=== PATIENT | male | born 1960 | race Caucasian/White ===

== ENCOUNTER → 2017-10-30 | Outpatient (CLI) | payer OTHER | END | disposition home or self-care (01) | LOC: C.LABSPEC 17:20 | PROVIDERS: ATTEND Urology | DX: N41.0 Acute prostatitis (principal) ==

== ENCOUNTER → 2018-03-25 | Outpatient (CLI) | payer OTHER ==
[2018-03-25 10:35] LABS: ALBUMIN 3.8 gm/dl (3.4-5.0); ALKALINE PHOSPHATASE 52 U/L (45-117); ALT/SGPT 42 U/L (12-78); AST/SGOT 22 U/L (15-37); BLOOD UREA NITROGEN 17 mg/dl (7-18); CALCIUM 9.3 mg/dl (8.5-10.1); CARBON DIOXIDE 29 mmol/L (21-32); CREATININE 0.97 mg/dl (0.60-1.40); GLUCOSE 94 mg/dl (70-99); POTASSIUM 3.5 mmol/L (3.5-5.1); SODIUM 139 mmol/L (136-145); TOTAL PROTEIN 7.6 gm/dl (6.4-8.2)
== END | disposition home or self-care (01) ==
LOC: C.LAB 09:25
PROVIDERS: ATTEND Urology
DX: N40.1 Benign prostatic hyperplasia with lower urinary tract symptoms (principal)

== ENCOUNTER 2020-11-16 14:31 | Inpatient (IN) ==
[2020-11-16] MEDS ORDERED: ONDANSETRON INJ 2 MG/ML 2 ML VIAL IV STA (14:41)
[2020-11-16] MEDS ORDERED: MoRPHine SULFATE 4 MG/ML 1 ML CARP\\VIAL IV STA ×2 (14:41→16:10)
[2020-11-16] MEDS ORDERED: SODIUM CHLORIDE 0.9% 1000ML 1,000 ML IV ONE (14:41)
--- NOTE | 2020-11-16 15:04 | Emergency Department Note ---
Impression & Plan Hydronephrosis due to obstruction of ureter, Renal colic ED Provider Note NAME: TAYLOR MINOR AGE: 60 SEX: M : 1960 ARRIVES VIA: Walk-In INFORMANT: Patient ED PROVIDER(S): Bernardo Juan DO CHIEF COMPLAINT: Left flank pain HPI: Patient is a 60-year-old male who presents to ER for left flank pain which started over a week ago. Symptoms have been getting worse. He was seen in outside facility and then again last night at [facility]. After being discharged patient was doing well. He was discharged around 2 AM and was given Toradol and his oxycodone. He was doing well until about 9 AM when pain started up. He started taking his oxycodone and Toradol and had no significant improvement called urology and was referred in. He has an appointment with Dr. Orr coming up this week. No headache or change in vision. No chest pain or shortness of breath. ROS: See above HPI for pertinent positives & negatives. A total of 10 systems reviewed and were otherwise negative. PAST MEDICAL HISTORY:See Below PAST SURGICAL HISTORY:See Below FAMILY HISTORY:See Below SOCIAL HISTORY:See Below HOME MEDICATIONS:See Below ALLERGIES:See Below VITALS:See Below PHYSICAL EXAMINATION: GENERAL: Sitting up in bed, alert, Moderate distress holding left flank EYE EXAM: normal conjunctiva. OROPHARYNX: no exudate, no erythema, lips, buccal mucosa, and tongue normal and mucous membranes are moist NECK: supple, no nuchal rigidity, no adenopathy, non-tender LUNGS: Clear to auscultation. Normal chest wall mechanics HEART: no murmurs, S1 normal and S2 normal ABDOMEN: abdomen soft, non-tender, normo-active bowel sounds, no masses, no rebound or guarding. UPPER EXTREMITIES: upper extremities are grossly normal. LOWER EXTREMITIES: No pitting edema. NEURO EXAM: Normal sensorium, cranial nerves II-XII grossly intact, normal speech, no gross weakness of arms, no gross weakness of legs. MEDICAL DECISION MAKING: Patient is a 60-year-old male who presents the ER for left flank pain. This is been going on for over a week. Patient was seen in outside facility and again last night here around 2 AM. Patient was discharged home and was doing well. Repeat blood work was obtained and shows no significant leukocytosis or anemia. BMP with LFTs bilirubin and lipase was unremarkable. UA with small amount of blood in his urine consistent with stone. KUB did not visualize Stone. Did not repeat an ultrasound as he just had a CT performed about 12 hours ago here.He was given IV fluids and 2 dose of IV narcotics. He still had persistent pain. He was discussed with urology. Discussed with hospitalist for observation secondary to persistent pain he lives [place] away with this now being his third visit. Triage Nursing notes reviewed. Limited review of prior medical records performed Vital Signs: reviewed and remarkable for no significant abnormalities Differential diagnosis: Differential diagnoses includes but is not limited to gastritis, peptic ulcer disease, GERD, gallbladder disease, pancreatitis, small bowel obstruction, acute coronary syndrome, pericarditis, ischemic bowel, irritable bowel disease, irritable bowel syndrome, appendicitis, diverticulitis, malignancy, hernia, urinary tract infection, torsion, perforation, trauma, infectious. ER treatment provided: See below Diagnostics interpreted by me: ECG: none Cardiac Monitoring: An order was placed for continuous cardiac monitoring. The monitor shows a rate of 82 with sinus rhythm. Laboratory studies: As stated above and show below. Imaging studies: KUB was unremarkable Consultation(s): Discussed with urology who recommended if pain is not controlled observation and n.p.o. after midnight Discussed with Dr. Manning from not any hospitalist for further evaluation Procedures: none Critical Care: None Past Med/Surg History Social History Smoking Status: Never smoker Preferred Language: Faroese Feels Safe at Home: Yes Allergies Allergies Allergy/AdvReac Type Severity Reaction Status Date / Time No Known Allergies Allergy Unverified 11/16/20 15:55 Home Meds Home Medications Medication Instructions Recorded Confirmed ketorolac 10 mg PO UD PRN 11/15/20 11/16/20 metoprolol succinate 25 mg PO HS 11/15/20 11/16/20 ondansetron 4 mg PO UD PRN 11/15/20 11/16/20 tamsulosin 0.4 mg PO DAILY 11/15/20 11/16/20 famotidine [Pepcid] 20 mg PO DAILY PRN 11/16/20 11/16/20 Previous Rx's Medication Instructions Recorded oxycodone 5 mg PO Q4H #15 tab 11/16/20 Results & Data (ED) Vital Signs Vital Signs - 24 hr 11/16/20 14:32 11/16/20 14:58 11/16/20 15:35 Temperature 36.8 C Temperature Source Temporal Artery Scan Pulse Rate 92 H Pulse Rate [Finger] 89 Pulse Rhythm Regular Pulse Strength Normal Respiratory Rate 20 18 Respiratory Effort / Characteristics Non-Labored Spontaneous Respiratory Depth Normal Respiratory Pattern Regular Blood Pressure [Left Arm] 148/99 H Blood Pressure Mean [Left Arm] 115 Blood Pressure Position Sitting Pulse Oximetry 96 97 Oxygen Delivery Method Room Air Room Air Room Air Sepsis Recent Fever Within 48 Hours No Sepsis New/Unexplained Change in Mental Status No Sepsis Action Taken by Nursing No Action Required 11/16/20 16:06 Temperature Temperature Source Pulse Rate Pulse Rate [Finger] 86 Pulse Rhythm Pulse Strength Respiratory Rate 18 Respiratory Effort / Characteristics Non-Labored Respiratory Depth Normal Respiratory Pattern Blood Pressure [Left Arm] 150/99 H Blood Pressure Mean [Left Arm] 116 Blood Pressure Position Pulse Oximetry 97 Oxygen Delivery Method Room Air Sepsis Recent Fever Within 48 Hours Sepsis New/Unexplained Change in Mental Status Sepsis Action Taken by Nursing Laboratory Data Result diagrams: 11/16/20 14:57 11/16/20 14:57 Lab Results 11/16/20 11/16/20 11/16/20 Range/Units 14:57 14:57 14:57 WBC 8.85 (4.8-10.8) K/uL RBC 4.46 L (4.7-6.1) M/uL Hgb 14.0 (14.0-18.0) g/dL Hct 38.8 L (42-52) % MCV 87.0 (80-100) fL MCH 31.4 (25-34) pg MCHC 36.1 H (32-36) g/dL RDW Std Deviation 43.5 (36.4-46.3) fL RDW Coeff of Neymar 13.5 (11.5-14.5) % Plt Count 245 (130-400) K/uL MPV 8.8 (7.4-10.4) fL Immature Gran % (Auto) 0.2 % Neut % (Auto) 63.2 % Lymph % (Auto) 24.4 % Nobles % (Auto) 9.8 % Eos % (Auto) 2.3 % Baso % (Auto) 0.1 % Neut # (Auto) 5.59 (1.4-6.5) K/uL Lymph # (Auto) 2.16 (1.2-3.4) K/uL Nobles # (Auto) 0.87 H (0.11-0.59) K/uL Eos # (Auto) 0.20 (0-0.5) K/uL Baso # (Auto) 0.01 (0-0.2) K/uL Immature Gran # (Auto) 0.02 (0.00-0.02) K/uL Sodium 137 (136-145) mmol/L Potassium 4.0 (3.5-5.1) mmol/L Chloride 104 (98-107) mmol/L Carbon Dioxide 30 (21-32) mmol/L Anion Gap 3.0 (3-11) BUN 15 (7-18) mg/dl Creatinine 1.26 (0.6-1.4) mg/dl Est Cr Clr Drug Dosing 83.7 ml/min Est GFR ( Amer) 72.4 Est GFR (Non-Af Amer) 62.5 BUN/Creatinine Ratio 11.8 (10-20) Glucose 91 (70-99) mg/dl Calcium 8.2 L (8.5-10.1) mg/dl Total Bilirubin 0.6 (0.2-1) mg/dl AST 27 (15-37) U/L ALT 51 (12-78) U/L Alkaline Phosphatase 61 (45-117) U/L Total Protein 7.3 (6.4-8.2) gm/dl Albumin 3.4 (3.4-5.0) gm/dl Globulin 3.9 (2.5-4.0) gm/dl Albumin/Globulin Ratio 0.9 (0.9-2) Lipase 102 (73-393) U/L Urine Color Yellow Urine Appearance Clear (Clear) Urine pH 6.5 (4.5-7.5) Ur Specific [place] 1.019 (1.000-1.030) Urine Protein Negative (Negative) Urine Glucose (UA) Negative (Negative) Urine Ketones Negative (Negative) Urine Blood 3+ H (Negative) Urine Nitrite Negative (Negative) Urine Bilirubin Negative (Negative) Urine Urobilinogen Negative (Negative) Ur Leukocyte Esterase Negative (Negative) Urine WBC (Auto) 1-5 (0-5) /hpf Urine RBC (Auto) >30 H (0-4) /hpf U Hyaline Cast (Auto) 0 (0-5) /lpf U Epithel Cells (Auto) 0-5 (0-5) /lpf Urine Bacteria (Auto) Negative (Negative) COVID-19 Eval Order 11/16/20 Range/Units 16:28 WBC (4.8-10.8) K/uL RBC (4.7-6.1) M/uL Hgb (14.0-18.0) g/dL Hct (42-52) % MCV (80-100) fL MCH (25-34) pg MCHC (32-36) g/dL RDW Std Deviation (36.4-46.3) fL RDW Coeff of Neymar (11.5-14.5) % Plt Count (130-400) K/uL MPV (7.4-10.4) fL Immature Gran % (Auto) % Neut % (Auto) % Lymph % (Auto) % Nobles % (Auto) % Eos % (Auto) % Baso % (Auto) % Neut # (Auto) (1.4-6.5) K/uL Lymph # (Auto) (1.2-3.4) K/uL [place]les # (Auto) (0.11-0.59) K/uL Eos # (Auto) (0-0.5) K/uL Baso # (Auto) (0-0.2) K/uL Immature Gran # (Auto) (0.00-0.02) K/uL Sodium (136-145) mmol/L Potassium (3.5-5.1) mmol/L Chloride (98-107) mmol/L Carbon Dioxide (21-32) mmol/L Anion Gap (3-11) BUN (7-18) mg/dl Creatinine (0.6-1.4) mg/dl Est Cr Clr Drug Dosing ml/min Est GFR ( Amer) Est GFR (Non-Af Amer) BUN/Creatinine Ratio (10-20) Glucose (70-99) mg/dl Calcium (8.5-10.1) mg/dl Total Bilirubin (0.2-1) mg/dl AST (15-37) U/L ALT (12-78) U/L Alkaline Phosphatase (45-117) U/L Total Protein (6.4-8.2) gm/dl Albumin (3.4-5.0) gm/dl Globulin (2.5-4.0) gm/dl Albumin/Globulin Ratio (0.9-2) Lipase (73-393) U/L Urine Color Urine Appearance (Clear) Urine pH (4.5-7.5) Ur Specific [place] (1.000-1.030) Urine Protein (Negative) Urine Glucose (UA) (Negative) Urine Ketones (Negative) Urine Blood (Negative) Urine Nitrite (Negative) Urine Bilirubin (Negative) Urine Urobilinogen (Negative) Ur Leukocyte Esterase (Negative) Urine WBC (Auto) (0-5) /hpf Urine RBC (Auto) (0-4) /hpf U Hyaline Cast (Auto) (0-5) /lpf U Epithel Cells (Auto) (0-5) /lpf Urine Bacteria (Auto) (Negative) COVID-19 Eval Order CovFluRsv at [facility] Administered Medications Discontinued Medications Sodium Chloride (Nss 1000ml) 1,000 mls @ 999 mls/hr IV .[id number] ONE Stop: 11/16/20 15:41 Last Infusion: 11/16/20 16:02 Dose: 0 mls/hr Documented by: [id number] Admin: 11/16/20 14:56 Dose: 999 mls/hr Documented by: [id number] Morphine Sulfate (Morphine Sulfate 4 Mg/Ml 1 Ml Carp\Vial) 4 mg IV NOW STA Stop: 11/16/20 14:42 Last Admin: 11/16/20 14:55 Dose: 4 mg Documented by: [id number] Morphine Sulfate (Morphine Sulfate 4 Mg/Ml 1 Ml Carp\Vial) 4 mg IV NOW STA Stop: 11/16/20 16:11 Last Admin: 11/16/20 16:25 Dose: 4 mg Documented by: [id number] Ondansetron HCl (Ondansetron Inj 2 Mg/Ml 2 Ml Vial) 4 mg IV NOW STA Stop: 11/16/20 14:42 Last Admin: 11/16/20 14:56 Dose: 4 mg Documented by: [id number] Imaging Data Radiologist's Impression: KUB X-Ray 11/16/20 14:42 KUB CLINICAL HISTORY: Left flank pain. FINDINGS: 3 AP supine abdominal radiographs are correlated with abdominal CT performed the same day 11/16/2020. Cystectomy clips are seen in the right upper quadrant. There is a nonobstructed abdominal bowel gas pattern noting moderate colonic fecal retention. The patient's known left ureteral stone is not visualized. No calcifications are seen projecting over either kidney. The right renal shadow is largely obscured by overlying colonic contents. Phleboliths are noted in the pelvis. The bony structures appear intact. IMPRESSION: The patient's known left ureteral stone seen by CT is not visualized by x-ray. Electronically signed by: Torres Allison M.D. 11/16/2020 3:20 PM Discharge Plan Visit Data Chief Complaint: Kidney Stone Stated Complaint: LEFT SIDED KIDNEY STONE ED Provider: Bernardo Juan Discharge Problem: Hydronephrosis due to obstruction of ureter, Renal colic Forms Stand Alone Forms: [facility] [employer] Prescriptions Prescriptions: No Action ketorolac 10 mg tablet 10 mg PO UD PRN (Reason: Pain) RF: 0 tamsulosin 0.4 mg capsule 0.4 mg PO DAILY RF: 0 ondansetron 4 mg tablet,disintegrating 4 mg PO UD PRN (Reason: Nausea) RF: 0 metoprolol succinate 25 mg tablet extended release 24 hr 25 mg PO HS RF: 0 oxycodone 5 mg tablet 5 mg PO Q4H Qty: 15 RF: 0 famotidine [Pepcid] 20 mg Tablet 20 mg PO DAILY PRN (Reason: Heartburn) RF: 0
[2020-11-16 15:10] LABS: Basophils # (auto) 0.01 K/uL (0-0.2); Basophils % (auto) 0.1 %; Eosinophils % (auto) 2.3 %; Hematocrit (blood only) 38.8 % (42-52); Immature Granulocytes # (auto) 0.02 K/uL (0.00-0.02); Immature Granulocytes % (auto) 0.2 %; Lymphocytes # (auto) 2.16 K/uL (1.2-3.4); Lymphocytes % (auto) 24.4 %; Mean Corpuscular Hemoglobin 31.4 pg (25-34); Mean Corpuscular Hgb Conc 36.1 g/dL (32-36); Mean Platelet Volume 8.8 fL (7.4-10.4); Monocytes # (auto) 0.87 K/uL (0.11-0.59); Monocytes % (auto) 9.8 %; Neutrophils # (auto) 5.59 K/uL (1.4-6.5); Neutrophils % (auto) 63.2 %; Platelet Count 245 K/uL (130-400); RDW Coefficient of Variation 13.5 % (11.5-14.5); RDW Standard Deviation 43.5 fL (36.4-46.3); Red Blood Count 4.46 M/uL (4.7-6.1); White Blood Count 8.85 K/uL (4.8-10.8)
[2020-11-16 15:20] LABS: Appearance Urine Clear (Clear); Bacteria Urine Automated Negative (Negative); Bilirubin Urine Negative (Negative); Blood Urine 3+ (Negative); Cast Urine Automated 0 /lpf (0-5); Color Urine Yellow; Epithelial Cell Urine Auto 0-5 /lpf (0-5); Glucose Urine UA Negative (Negative); Ketones Urine Negative (Negative); Leukocyte Esterase Urine Negative (Negative); Nitrite Urine Negative (Negative); Protein Urine Negative (Negative); RBC Urine Automated >30 /hpf (0-4); Specific Gravity Urine 1.019 (1.000-1.030); Urobilinogen Urine Negative (Negative); pH Urine 6.5 (4.5-7.5)
--- NOTE | 2020-11-16 15:21 | XRay Report ---
KUB CLINICAL HISTORY: Left flank pain. FINDINGS: 3 AP supine abdominal radiographs are correlated with abdominal CT performed the same day . Cystectomy clips are seen in the right upper quadrant. There is a nonobstructed abdominal b owel gas pattern noting moderate colonic fecal retention. The patient's known left ureteral stone is not visualized. No calcifications are seen projecting over either kidney. The right renal shadow is l argely obscured by overlying colonic contents. Phleboliths are noted in the pelvis. The bony structur es appear intact. IMPRESSION: The patient's known left ureteral stone seen by CT is not visualized by x-ray. Electronically signed by: Torres Allison M.D. 11/16/2020 3:20 PM
[2020-11-16 15:35] LABS: Albumin Level 3.4 gm/dl (3.4-5.0); BUN Creatinine Ratio 11.8 (10-20); Calcium 8.2 mg/dl (8.5-10.1); Creatinine Clr Calc Pharmacy 83.7 ml/min; Est GFR (African American) 72.4; Est GFR (Non-African American) 62.5
[2020-11-16 15:37] LABS: Albumin Globulin Ratio 0.9 (0.9-2); Bilirubin,Total 0.6 mg/dl (0.2-1); Globulin 3.9 gm/dl (2.5-4.0); Total Protein 7.3 gm/dl (6.4-8.2)
[2020-11-16] MEDS ORDERED: MoRPHine SULFATE 2 MG/ML CARP IV PRN (16:58)
[2020-11-16] MEDS ORDERED: oxyCODONE/ACETAMINOPHEN 5mg/325mg TAB PO PRN (16:58)
[2020-11-16 17:18] LABS: Influenza A virus by PCR Negative (Neg); Influenza B virus by PCR Negative (Neg); RSV by PCR Negative (Neg); SARS CoV2 RNA(COVID-19) InHosp NEGATIVE (Negative)
--- NOTE | 2020-11-16 17:26 | History & Physical Report ---
Date of Service November 16, 2020 Assessment & Plan (1) Ureterolithiasis: - There is a 4 mm obstructing calculus in the mid left ureter - least mild left-sided hydronephrosis. Numerous parapelvic cysts are seen bilaterally. -There is slightly heterogeneous enhancement of the left kidney. Mild left-sided perinephric stranding is noted. - Pain control- Toradol 15mg IV 16 hours scheduled for 24 hours, Percocet 5/325 II q6 prn, Morphine 2 mg IV q2h PRN severe pain - Continue Tamsulosin 0.4mg PO daily - LR at 100 ml per hour - NPO after midnight - Urology consulted Patient is non-septic and urine analysis is negative for infection. (2) HTN (hypertension): States he is originally well controlled, likely elevated now in the setting of acute pain - Continue Metoprolol - Notify team if >180 (3) GERD (gastroesophageal reflux disease): No acute needs - Continue famotidine 20 mg PO Daily (4) Obesity: BMI 36- educate on weight loss and activity - assess other co-morbidities - lipid panel in morning - Hgb A1C in morning - consider adding aspirin after acute setting for primary prevention (5) DVT prophylaxis: Heparin 5000 subq q12 SCD Early ambulation (6) Renal cyst: Chronic - no acute needs, normal renal function History of Present Illness Chief Complaint: renal colic Primary Care Provider: Atul Suero 60 YOM with past medical history of HTN, obesity, nephrolithiasis, renal cysts, and cholecystectomy. Patient comes in to the emergency room today for uncontrolled pain secondary to a known 4mm obstructing left renal stone. The patient started having the pain last week. He went to [place] on Sunday was discharged home after pain medication and some IVF per his recollection, he called Urology office on Sunday and scheduled an appointment with Dr. Orr for the 18 of November. The patient reports that "he has been following this stone with me". The patient came to the emergency room last night because the pain moved and became more unbearable. He had CT scan of the abdomen done which showed known bilateral renal cysts, 4mm obstructing stone on the left and a 4mm obstructing stone on the left. He was treated with toradol IM and IV morphine, and was discharged with PO Toradol 10mg and Oxycodone 5mg. Patient got home reportedly at 230 in the morning and went to bed without taking pain medication. He woke up this morning with the pain worsening on his left side and took 1 Toradol, with no relief and then at 11 he took 1 oxycodone. He called the urology office and did not receive a return call so he came back to the emergency room. He was given IV morphine and Zofran, and pain still was at 5- 6/10. Hospitalist team was notified for admission. He will be admitted for pain control, kept NPO after midnight and Urology consult will be placed. Allergies Allergy/AdvReac Type Severity Reaction Status Date / Time lisinopril AdvReac Mild Cough Verified 11/22/20 12:09 Home Medications Medication Instructions Recorded Confirmed Type ketorolac 10 mg PO UD PRN 11/15/20 11/22/20 History metoprolol succinate 25 mg PO QPM 11/15/20 11/22/20 History ondansetron 4 mg PO UD PRN 11/15/20 11/22/20 History famotidine [Pepcid] 20 mg PO DAILY PRN 11/16/20 11/22/20 History oxycodone 5 mg PO Q4H #15 tab 11/16/20 11/22/20 Rx phenazopyridine [Pyridium] 200 mg PO Q8H PRN #10 tab 11/19/20 11/22/20 Rx tamsulosin [Flomax] 0.4 mg PO DAILY #10 cap 11/21/20 11/22/20 Rx Past Med/Surg History Medical History Bilateral nephrolithiasis GERD (gastroesophageal reflux disease) History of COVID-19 05/2020 > Symptoms at time of fever, loss of taste/smell > resolved HTN (hypertension) Hx of prostatitis Kidney stones Obesity Renal cyst Under surveillance Sleep apnea CPAP Surgical History Biceps tendon rupture Right repair x2 History of anesthesia reaction "slow to wake" and O2 sats dropped History of cholecystectomy History of colonoscopy History of lithotripsy Left ESWL (11/19/20): LMA#5 at [facility] [place] History of tooth extraction Family History Father Dyslipidemia Heart disease Hypertension Mother Hypertension Other No family history of adverse response to anesthesia Social History Smoking Status: Never smoker Second Hand Exposure: No; Hx Alcohol Use: Yes Alcohol type: beer Hx Substance Use: No Preferred Language: Swiss Communication Ability: Effective Global Sourcing Manager Required: No Beliefs That Will Affect Care: None Current Living Situation: Spouse Feels Safe at Home: Yes Safety Concerns: Feels Safe At This Time Assistive Devices: CPAP and Glasses Review of Systems Review of Systems: REVIEW OF SYSTEMS: Constitutional: No fever, sweats or chills Eyes: No diplopia, no worsening or blurred vision ENT: normal hearing, no trouble swallowing Respiratory: No cough, sputum, dyspnea at rest or on exertion Cardiovascular: No chest pain, tightness or palpitations Abdomen: (+) left flank pain, nausea, hematuria, NO vomiting, diarrhea or constipation Musculoskeletal: No joint pain, calf pain, swelling Neurologic: No weakness, numbness/tingling, or balance problems Psychiatric: No anxiety or depression Skin: No rash or itch Physical Exam Physical Exam: PHYSICAL EXAM: General: awake, alert, no apparent distress Head: Normocephalic, atraumatic ENT: PERRL, EOMI, no pharyngeal exudate, mucous membranes moist Neuro: AAO x 3, speech clear and appropriate, strength intact bilaterally 5/5, sensation intact and equal all extremities and dermatomes, no pronator drift Chest: equal rise and fall of the chest, no accessory muscle use, no heaves or thrills, Clear to auscultation, on room air, Cardiac: Regular rate and rhythm, telemetry reviewed, skin warm dry, cap refill <3 seconds, peripheral pulses +2 no JVD, no murmur, no edema GI: NABS x 4 quadrants, soft, nontender to palpation, no rebound, guarding or tenderness : Spontaneously voiding, urine negative for bacteria, (+) blood, CVA tenderness to left, no pain, no CVA tenderness to right, Extremities: Normal inspection, no peripheral edema or erythema, calfs nontender to palpation Psych: Normal mood and affect Skin: no rash or erythema Results & Data Results & Data ([facility]) Vital Signs (Past 12 Hours) Vital Signs Temp Pulse Pulse Resp BP Pulse Ox 11/16/20 16:06 86 18 150/99 H 97 11/16/20 15:35 89 18 148/99 H 97 11/16/20 14:32 36.8 C 92 H 20 96 Laboratory Results Abnormal lab results 11/16/20 11/16/20 11/16/20 Range/Units 14:57 14:57 14:57 RBC 4.46 L (4.7-6.1) M/uL Hct 38.8 L (42-52) % MCHC 36.1 H (32-36) g/dL Centre # (Auto) 0.87 H (0.11-0.59) K/uL Calcium 8.2 L (8.5-10.1) mg/dl Urine Blood 3+ H (Negative) Urine RBC (Auto) >30 H (0-4) /hpf Diagnostic Findings KUB CLINICAL HISTORY: Left flank pain. FINDINGS: 3 AP supine abdominal radiographs are correlated with abdominal CT performed the same day 11/16/2020. Cystectomy clips are seen in the right upper quadrant. There is a nonobstructed abdominal bowel gas pattern noting moderate colonic fecal retention. The patient's known left ureteral stone is not visualized. No calcifications are seen projecting over either kidney. The right renal shadow is largely obscured by overlying colonic contents. Phleboliths are noted in the pelvis. The bony structures appear intact. IMPRESSION: The patient's known left ureteral stone seen by CT is not visualized by x-ray. CT SCAN OF THE ABDOMEN AND PELVIS WITH IV CONTRAST CLINICAL HISTORY: Left flank pain. COMPARISON STUDY: Abdominal CT dated 03/28/2018. TECHNIQUE: Following the IV administration of 77 cc of Optiray 320, CT scan of the abdomen and pelvis is performed from the lung bases to the proximal femora. Images are reviewed in the axial, sagittal, and coronal planes. IV contrast was administered without complication. A dose lowering technique was utilized adhering to the principles of ALARA. CT DOSE: 1406.02 mGy.cm FINDINGS: Lung bases: The heart is normal in size and without pericardial effusion. The lung bases are clear noting dependent atelectasis. There is a small hiatal hernia. Liver: The contrast-enhanced liver is normal in size, contour, and attenuation. There is minimal central intrahepatic biliary ductal dilatation. The hepatic veins and portal veins are patent. Gallbladder: Surgically absent noting clips in the gallbladder fossa. Spleen: Normal in size and attenuation. Pancreas: Unremarkable. Adrenal glands: Unremarkable. Kidneys: The contrast enhanced kidneys are normal in size. There is a 4 mm obstructing calculus in the mid left ureter at the level of L4 seen on image #243. This causes at least mild left-sided hydronephrosis. Numerous parapelvic cysts are seen bilaterally. No additional renal calculi are clearly seen in the left kidney on this contrast-enhanced examination. There is a 4 mm nonobstructing calculus in the right upper pole. No right-sided hydronephrosis is seen. There is slightly heterogeneous enhancement of the left kidney. Mild left-sided perinephric stranding is noted. Abdominal vasculature: The abdominal aorta is normal in course and caliber. Bowel: There is no bowel obstruction. The appendix is well-visualized and normal. Peritoneum: There is no intraperitoneal free air or abdominal ascites. There is a fat-containing umbilical hernia. Lymphadenopathy: None. Pelvic viscera: The bladder is decompressed and grossly unremarkable. The prostate and seminal vesicles are normal as visualized. Skeletal structures: No lytic or blastic lesions are seen. IMPRESSION: 1. There is a 4 mm obstructing calculus in the mid left ureter. This causes at least mild left-sided hydronephrosis. 2. There is an additional nonobstructing right renal calculus. 3. Additional findings as above. Medications Administered Home Medications ketorolac 10 mg PO UD PRN 11/15/20 [History Confirmed 11/16/20] metoprolol succinate 25 mg PO HS 11/15/20 [History Confirmed 11/16/20] ondansetron 4 mg PO UD PRN 11/15/20 [History Confirmed 11/16/20] tamsulosin 0.4 mg PO DAILY 11/15/20 [History Confirmed 11/16/20] famotidine [Pepcid] 20 mg PO DAILY PRN 11/16/20 [History Confirmed 11/16/20] oxycodone 5 mg PO Q4H #15 tab 11/16/20 [Rx Confirmed 11/16/20] Active Medications Ketorolac Tromethamine (Ketorolac Tromethamine 15 Mg/Ml Vial) 15 mg IV Q6H [facility] Stop: 11/17/20 16:59 Morphine Sulfate (Morphine Sulfate 2 Mg/Ml Carp) 2 mg IV Q2H PRN PRN Reason: severe pain 7-10 Stop: 11/30/20 16:57 Ondansetron HCl (Ondansetron Home Pack 4mg Od Tab) homepack PO UD PRN PRN Reason: Nausea Stop: 12/16/20 16:57 Oxycodone/Acetaminophen (Oxycodone/Acetaminophen 5mg/325mg Tab) 2 tab PO Q6H PRN PRN Reason: Pain Stop: 11/30/20 16:57 ECG Additional Comments: Not performed- will obtain Code Status & VTE Plan Code Status CODE: FULL VTE: Heparin, SCD's Supervising Physician Co-Signing Physician Notes During my face to face encounter, I obtained a history and physical examination. I reviewed above note and agree with it. I discussed plan of care with patient and SIMA Beck. I answered all of the patient's questions. will admit for kidney stones. continue tamsulosin and LR PG Care Time/CCT Total # of Minutes Spent Total Time Spent with Patient: Total time spent is greater than 50% in coordination of care (as documented) at patient's floor/unit and/or counseling patient: Coding Level of Care Code 69184 Initial Inpt Care Lvl 3 Diagnoses Ureterolithiasis N20.1 HTN (hypertension) I10 Hypertension type: essential hypertension GERD (gastroesophageal reflux disease) K21.9 Esophagitis presence: without esophagitis Obesity E66.09; Z68.36 Body mass index: BMI 36.0-36.9 Obesity classification: adult class 2 (BMI 35 - 39.9) Obesity type: due to excess calories Serious obesity comorbidity presence: without serious comorbidity DVT prophylaxis Z29.9 Renal cyst N28.1 (1) GERD (gastroesophageal reflux disease) Esophagitis presence: without esophagitis Qualified Code(s): K21.9 - Gastro- esophageal reflux disease without esophagitis (2) HTN (hypertension) Hypertension type: essential hypertension Qualified Code(s): I10 - Essential (primary) hypertension (3) Obesity Body mass index: BMI 36.0-36.9 Obesity classification: adult class 2 (BMI 35 - 39.9) Obesity type: due to excess calories Serious obesity comorbidity presence: without serious comorbidity Qualified Code(s): E66.09 - Other obesity due to excess calories; Z68.36 - Body mass index [BMI] 36.0-36.9, adult
[2020-11-16] MEDS: KETOROLAC TROMETHAMINE 15 MG/ML VIAL IV SCH ×2 (18:49→23:21)
[2020-11-16] MEDS ORDERED: FAMOTIDINE 20 MG TAB PO PRN (19:25)
[2020-11-16] MEDS ORDERED: ONDANSETRON 4 MG OD TAB PO PRN (21:56)
[2020-11-16] MEDS: LACTATED RINGER'S 1,000 ML IV SCH (22:14)
[2020-11-16] MEDS: HEPARIN SOD 5,000 UNIT/0.5 ML VIAL SQ SCH (22:29)
[2020-11-16] MEDS: METOPROLOL SUCC 25MG EXT REL TAB PO SCH (22:30)
[2020-11-17] MEDS: KETOROLAC TROMETHAMINE 15 MG/ML VIAL IV SCH ×3 (06:00→12:48)
[2020-11-17 06:45] LABS: Basophils # (auto) 0.01 K/uL (0-0.2); Basophils % (auto) 0.1 %; Eosinophils # (auto) 0.23 K/uL (0-0.5); Hematocrit (blood only) 37.7 % (42-52); Immature Granulocytes # (auto) 0.02 K/uL (0.00-0.02); Immature Granulocytes % (auto) 0.3 %; Lymphocytes # (auto) 1.81 K/uL (1.2-3.4); Lymphocytes % (auto) 23.9 %; Mean Corpuscular Hemoglobin 30.5 pg (25-34); Mean Corpuscular Hgb Conc 34.5 g/dL (32-36); Mean Corpuscular Volume 88.5 fL (80-100); Mean Platelet Volume 8.6 fL (7.4-10.4); Monocytes # (auto) 0.66 K/uL (0.11-0.59); Monocytes % (auto) 8.7 %; Neutrophils # (auto) 4.83 K/uL (1.4-6.5); Platelet Count 215 K/uL (130-400); RDW Coefficient of Variation 13.7 % (11.5-14.5); RDW Standard Deviation 44.2 fL (36.4-46.3); Red Blood Count 4.26 M/uL (4.7-6.1); White Blood Count 7.56 K/uL (4.8-10.8)
[2020-11-17 07:20] LABS: Estimated Average Glucose 117 mg/dl; Hemoglobin A1C 5.7 % (4.5-5.6)
[2020-11-17 07:35] LABS: BUN Creatinine Ratio 13.4 (10-20); Calcium 8.4 mg/dl (8.5-10.1); Creatinine Clr Calc Pharmacy 76.9 ml/min; Magnesium 2.3 mg/dl (1.8-2.4); Potassium 4.9 mmol/L (3.5-5.1)
[2020-11-17] MEDS: LACTATED RINGER'S 1,000 ML IV SCH ×4 (07:48→20:56)
[2020-11-17] MEDS ORDERED: hydrALAZINE HCL 20 MG/ML VIAL IV PRN (07:58)
--- NOTE | 2020-11-17 08:02 | Hospitalist Progress Note ---
Date of Service November 17, 2020 Assessment & Plan (1) Ureterolithiasis: - There is a 4 mm obstructing calculus in the mid left ureter - least mild left-sided hydronephrosis. Numerous parapelvic cysts are seen bilaterally. -There is slightly heterogeneous enhancement of the left kidney. Mild left-sided perinephric stranding is noted. - Pain control- Toradol 15mg IV 16 hours scheduled for 24 hours, Percocet 5/325 II q6 prn, Morphine 2 mg IV q2h PRN severe pain - Continue Tamsulosin 0.4mg PO daily - LR at 200 ml per hour - NPO after midnight for possible cystoscopy and stenting on 11/18 Patient is non-septic and urine analysis is negative for infection. Extremity felt to be secondary to inflammation (2) HTN (hypertension): States he is originally well controlled, likely elevated now in the setting of acute pain and copious IV hydration - Continue Metoprolol -hydralazine prn for excessive bp elevation (3) GERD (gastroesophageal reflux disease): No acute needs - Continue famotidine 20 mg PO Daily (4) Obesity: BMI 36- educate on weight loss and activity - assess other co-morbidities - lipid panel in morning - Hgb A1C 5.7 - (5) DVT prophylaxis: Heparin 5000 subq q12 SCD Early ambulation (6) Renal cyst: Chronic - no acute needs, normal renal function Admission and Anticipated Discharge Date Admission Date: November 16, 2020 Subjective Patient only with occasional flank pain feels to be more in significant distress because he was kept n.p.o. Urology had visited the patient and feels another day of watchful waiting will be unemployed with copious hydration and pain control. Subsequently will allow him to eat Review of Systems Review of Systems: Moderate distress and fatigue no headache, blurry or double vision no speech or swallowing issues no chest pain, pressure or palpitations no shortness of breath, cough or wheezes Left side abdominal pain and CVA angle tenderness Urinary frequency and some dysuria no focal joint pain or swelling no focal back pain other than left-sided CVA tenderness without radicular pain component no bruising, bleeding or rashes no focal signs of weakness or numbness or altered sensation no complaints of anxiety or depression.. Physical Exam Physical Exam: The patient appeared well nourished and normally developed. He is in mild distress at this time Vital signs as documented. Head exam is normocephalic atraumatic no scleral icterus Neck is without JVD, thyromegaly, or carotid bruits. Lungs are clear to auscultation, no focal loss of breath sounds Cardiac exam, Rhythm is regular.. No murmurs, rubs or gallops. Abdominal exam reveals normal bowel sounds, soft non tender, no masses is of some left-sided CV angle tenderness otherwise without significant physical exam changes Extremities are nonedematous and both pedal pulses are present Neurologic exam is alert and oriented, no focal loss of strength or sensation Skin is without bruises or rashes Psychologically is without concerns for anxiety or depression Results & Data Results & Data ([facility]) Vital Signs (Past 12 Hours) Vital Signs Temp Pulse Resp BP Pulse Ox 11/17/20 07:10 98.8 F 90 17 156/104 H 95 11/16/20 22:18 97.5 F L 80 16 126/81 94 PG Care Time/CCT Total # of Minutes Spent Total Time Spent with Patient: Total time spent is greater than 50% in coordination of care (as documented) at patient's floor/unit and/or counseling patient: Coding Level of Care Code 26745 Subseq Hosp Care Lvl 2 Diagnoses Ureterolithiasis N20.1 HTN (hypertension) I10 Hypertension type: essential hypertension GERD (gastroesophageal reflux disease) K21.9 Esophagitis presence: without esophagitis Obesity E66.09; Z68.36 Body mass index: BMI 36.0-36.9 Obesity classification: adult class 2 (BMI 35 - 39.9) Obesity type: due to excess calories Serious obesity comorbidity presence: without serious comorbidity DVT prophylaxis Z29.9 Renal cyst N28.1 (1) GERD (gastroesophageal reflux disease) Esophagitis presence: without esophagitis Qualified Code(s): K21.9 - Gastro- esophageal reflux disease without esophagitis (2) HTN (hypertension) Hypertension type: essential hypertension Qualified Code(s): I10 - Essential (primary) hypertension (3) Obesity Body mass index: BMI 36.0-36.9 Obesity classification: adult class 2 (BMI 35 - 39.9) Obesity type: due to excess calories Serious obesity comorbidity presence: without serious comorbidity Qualified Code(s): E66.09 - Other obesity due to excess calories; Z68.36 - Body mass index [BMI] 36.0-36.9, adult
[2020-11-17] MEDS: HEPARIN SOD 5,000 UNIT/0.5 ML VIAL SQ SCH ×2 (08:51→20:56)
[2020-11-17] MEDS ORDERED: TAMSULOSIN HCL 0.4 MG CAP PO SCH (09:00)
--- NOTE | 2020-11-17 09:22 | Urology Consultation ---
Date of Consultation November 17, 2020 Assessment & Plan (1) Hydronephrosis due to obstruction of ureter: 60 year old male admitted for worsening left flank pain secondary to 4 mm obstructing left mid ureteral stone. - Hospital course, imaging, lab work and past medical/surgical hx reviewed - Afebrile, nontoxic, lab work reviewed - creatinine 1.36, WBC 7.56 - He reports episode of pain at 0330, but has since resolved - Discussed options for stone management including trial of passage vs surgical intervention including ureteroscopy and stent placement or outpatient ESWL - He elects trial of passage overnight and possible surgical intervention tomorrow in the form of ureteroscopy and stone treatment - KUB today showed no change in position of the 4 mm left mid ureteral stone, stable right-sided nephrolithiasis - Since stone is visualized on KUB today, we also discussed option for out patient ESWL on Sunday if he continues to do well and is without pain - Okay to have diet today, make NPO at midnight to reassess in AM - he has been added to OR schedule - Continue supportive care and prn pain management - Strain all urine - Please consult our service urgently if patient develops fever >101F, intractable pain or nausea, as this will necessitate urgent surgical intervention. Thank you for the consultation and we will continue to monitor closely with primary service. Supervising Physician Co-Signing Physician Notes spoke with patient . He is currently pain free. Offered ureteroscopy today vs ESWL w/o stent Sunday . Explained this is 65 percent effective . Pt concerned about pain with stent and will tentatively add on for both am ureteroscopy and eswl Sunday pending how pt does over night History of Present Illness Reason for Consultation: Left ureteral stone Attending Physician: Timothy Simmons MD History of Present Illness 60 year old male admitted for worsening left flank pain secondary to 4 mm obstructing left mid ureteral stone. PMHx of renal cyst, obesity GERD, HTN, and nephrolithiasis. Patient known to our service for history of renal cysts and nephrolithiasis. He presented to [facility] ED on 11/15/2020 with worsening left flank pain after being diagnosed with a 4 mm left ureteral stone at an outside hospital. He was pending outpatient follow-up with urology on 11/18, however, pain worsened prompting ER evaluation. Afebrile on arrival, creatinine within normal limits, and no leukocytosis. CT AP showed a 4 mm obstructing calculus in the mid left ureter, mild left-sided hydronephrosis. An additional nonobstructing right renal calculus. UA showed blood, otherwise not suggestive of infection. He was treated with IV fluids, morphine, ketorolac, and Tylenol. He was discharged from ED to home on 11/16 to keep outpatient urology follow-up. Unfortunately returned to ED several hours later with intractable left flank pain. Repeat blood work showed creatinine 1.26, WBC 8.85. UA showing blood, otherwise not suggestive of infection. Urine culture collected. KUB did not visualize stone. After multiple ER presentations, decision was made to admit patient for further evaluation and treatment. Our service is consulted for left ureteral stone. Chart review: Afebrile Creatinine 1.36 WBC 7.56 Urine culture pending Patient seen and examined at bedside this AM. Awake, alert, and sitting up in bed. Denies stone passage. Reports episode of flank pain at 0330, which resolved after pain medication and has not recurred. Reports no flank pain at present. Voiding without difficulty. No dysuria. Notes flecks of blood in urine intermittently. No nausea or vomiting. No fever or chills. Prior history of nephrolithiasis. Notes spontaneous passage once in remote past. No prior hx of surgical intervention for stones. No additional concerns today. Allergies Allergy/AdvReac Type Severity Reaction Status Date / Time No Known Allergies Allergy Unverified 11/16/20 15:55 Home Medications Medication Instructions Recorded Confirmed Type ketorolac 10 mg PO UD PRN 11/15/20 11/16/20 History metoprolol succinate 25 mg PO HS 11/15/20 11/16/20 History ondansetron 4 mg PO UD PRN 11/15/20 11/16/20 History tamsulosin 0.4 mg PO DAILY 11/15/20 11/16/20 History famotidine [Pepcid] 20 mg PO DAILY PRN 11/16/20 11/16/20 History oxycodone 5 mg PO Q4H #15 tab 11/16/20 11/16/20 Rx Patient History Medical History Bilateral nephrolithiasis Prostatitis Renal cyst Surgical History History of cholecystectomy Family History Father Dyslipidemia Heart disease Hypertension Mother Hypertension Social History Smoking Status: Never smoker Hx Alcohol Use: Yes Alcohol type: beer Hx Substance Use: No Preferred Language: Maldivian Communication Ability: Effective Yarn Finisher Required: No Beliefs That Will Affect Care: None Current Living Situation: Spouse Other Information That Helps Us Care for You: No Feels Safe at Home: Yes Safety Concerns: Feels Safe At This Time Assistive Devices: CPAP Review of Systems Constitutional: as per Subjective / HPI Eyes: no problem reported Ear, Nose, Mouth, Throat: no problem reported Respiratory: no problem reported Cardiovascular: no problem reported Gastrointestinal: as per Subjective / HPI Genitourinary: + as per Subjective / HPI Musculoskeletal: no problem reported Integumentary: no problem reported Neurologic: no problem reported Psychiatric: no problem reported Physical Exam Constitutional: well developed, well nourished and + obese; no acute distress and not ill appearing Eyes: no scleral abnormality Neck: normal visual inspection and trachea midline Respiratory: normal respiratory effort and able to speak in complete sentences; no respiratory distress and no labored breathing Cardiovascular: Extremities: no pedal edema Gastrointestinal (Abdomen): Inspection/Auscultation: abdomen normal to inspection; abdomen not distended Percussion/Palpation: abdomen soft; abdomen nontender and no guarding Musculoskeletal: Head/Neck/Chest: normocephalic and head atraumatic Extremities: extremities normal to inspection Skin: no rashes, warm and dry Neurologic: moves all extremities and awake Psychiatric: Orientation: alert and oriented x 3 Genitourinary: no CVA tenderness Results & Data ([facility]) Vital Signs (Past 12 Hours) Vital Signs Temp Pulse Resp BP Pulse Ox 11/17/20 07:10 37.1 C 90 17 156/104 H 95 11/16/20 22:18 36.4 C L 80 16 126/81 94 PG Care Time/CCT Total # of Minutes Spent Total Time Spent with Patient: Total time spent is greater than 50% in coordination of care (as documented) at patient's floor/unit and/or counseling patient: Coding Level of Care Code 73754 Inpt Consult Level 3 Diagnoses Hydronephrosis due to obstruction of ureter N13.1
--- NOTE | 2020-11-17 10:33 | XRay Report ---
KUB HISTORY: Follow-up left ureteral stone COMPARISON: Abdomen and pelvis CT 11/16/2020. FINDINGS: The bowel gas pattern is unremarkable. There are no dilated loops of small bowel to suggest an obstruction. No change in position of the 4 mm mid left ureteral stone. This is adjacent to the left L4 transverse process. There is a punctate stone within the right kidney. No left ureteral calcu li. No pneumoperitoneum or pneumatosis. IMPRESSION: 1. No change in position of the 4 mm left mid ureteral stone. 2. Stable right-sided nephrolithiasis. ACT 112: Negative or not required by law. Electronically signed by: Myron Piña M.D. 11/17/2020 10:32 AM
--- NOTE | 2020-11-17 15:20 | Electrocardiogram Report ---
Test Reason : Blood Pressure : / mmHG Vent. Rate : 079 BPM Atrial Rate : 079 BPM P-R Int : 158 ms QRS Dur : 082 ms QT Int : 374 ms P-R-T Axes : 032 070 040 degrees QTc Int : 428 ms Normal sinus rhythm Normal ECG No previous ECGs available Confirmed by Daljit Jang ([id number]) on 11/17/2020 3:19:53 PM Referred By: REFERRED SELF Confirmed By:Otf Jang
--- NOTE | 2020-11-17 16:50 | Anesthesiology Consultation ---
Date of Service November 17, 2020 Assessment & Plan (1) Encounter for pre-operative examination: Chart Review Chart Review: Acceptable Risk for Surgery and Patient NOT seen in Pre Admission Testing Consults Requested none History Surgery Operation Date: 11/18/20 13:45 Proposed Procedures p Cystoscopy, Possible Left Ureteroscopy, Laser Lithotripsy Left Stent - Leonid Orr, DO Height/Weight Height: 5 ft 11 in Weight: 116.7 kg Allergies Allergy/AdvReac Type Severity Reaction Status Date / Time No Known Allergies Allergy Unverified 11/16/20 15:55 Medications Home Medications Medication Instructions Recorded Confirmed Last Taken ketorolac 10 mg PO UD PRN 11/15/20 11/16/20 11/16/20 09:00 metoprolol succinate 25 mg PO HS 11/15/20 11/16/20 Unknown ondansetron 4 mg PO UD PRN 11/15/20 11/16/20 Unknown tamsulosin 0.4 mg PO DAILY 11/15/20 11/16/20 11/16/20 famotidine [Pepcid] 20 mg PO DAILY PRN 11/16/20 11/16/20 Unknown oxycodone 5 mg PO Q4H #15 tab 11/16/20 11/16/20 11/16/20 11:00 Active Medications Generic Name Dose Route Start Last Admin Trade Name Freq PRN Reason Stop Dose Admin Heparin Sodium (Porcine) 5,000 units 11/16/20 21:00 11/17/20 08:51 Heparin Sod 5,000 Unit/0.5 Ml Vial SQ 12/16/20 20:59 Not Given Q12 CESILIA Hydralazine HCl 10 mg 11/17/20 07:58 11/17/20 10:20 Hydralazine Hcl 20 Mg/Ml Vial IV 12/17/20 07:57 10 mg Q8 PRN Administration Blood Pressure - High Lactated Ringer's 1,000 mls @ 200 mls/hr 11/16/20 19:25 11/17/20 16:35 Lr IV 12/16/20 19:24 200 mls/hr .Q5H CESILIA Administration Ketorolac Tromethamine 15 mg 11/16/20 17:00 11/17/20 12:48 Ketorolac Tromethamine 15 Mg/Ml Vial IV 11/17/20 16:59 15 mg Q6H CESILIA Administration Metoprolol Succinate 25 mg 11/16/20 21:00 11/16/20 22:30 Metoprolol Succ 25mg Ext Rel Tab PO 12/16/20 20:59 Not Given HS CESILIA Morphine Sulfate 2 mg 11/16/20 16:58 11/17/20 03:39 Morphine Sulfate 2 Mg/Ml Carp IV 11/30/20 16:57 2 mg Q2H PRN Administration severe pain 7-10 Past Medical History Medical History Bilateral nephrolithiasis GERD (gastroesophageal reflux disease) HTN (hypertension) Obesity Prostatitis Renal cyst Past Family History Family History Father Dyslipidemia Heart disease Hypertension Mother Hypertension Past Surgical History Surgical History History of cholecystectomy Social History Smoking Status: Never smoker Hx Alcohol Use: Yes Alcohol type: beer alcohol intake frequency: holidays/special occasions only Hx Substance Use: No Physical Exam Vital Signs Last Vital Signs Temp 36.8 C 11/17/20 14:37 Pulse 93 H 11/17/20 14:37 Resp 16 11/17/20 14:37 BP 151/90 H 11/17/20 14:37 Pulse Ox 96 11/17/20 14:37 Testing Laboratory Results 11/17/20 06:24 11/17/20 06:24 Hemoglobin A1c 5.7 % (4.5-5.6) H 11/17/20 06:24 Urine Color Yellow 11/16/20 14:57 Urine Appearance Clear (Clear) 11/16/20 14:57 Urine pH 6.5 (4.5-7.5) 11/16/20 14:57 Ur Specific [place] 1.019 (1.000-1.030) 11/16/20 14:57 Urine Protein Negative (Negative) 11/16/20 14:57 Urine Glucose (UA) Negative (Negative) 11/16/20 14:57 Urine Ketones Negative (Negative) 11/16/20 14:57 Urine Nitrite Negative (Negative) 11/16/20 14:57 Ur Leukocyte Esterase Negative (Negative) 11/16/20 14:57 Urine WBC (Auto) 1-5 /hpf (0-5) 11/16/20 14:57 Urine RBC (Auto) >30 /hpf (0-4) H 11/16/20 14:57 U Hyaline Cast (Auto) 0 /lpf (0-5) 11/16/20 14:57 U Epithel Cells (Auto) 0-5 /lpf (0-5) 11/16/20 14:57 Urine Bacteria (Auto) Negative (Negative) 11/16/20 14:57 Electrocardiogram Date: 11/16/20 Findings: + NSR @ (84)
[2020-11-17] MEDS: METOPROLOL SUCC 25MG EXT REL TAB PO SCH (21:01)
[2020-11-17] MEDS: TAMSULOSIN HCL 0.4 MG CAP PO SCH (21:01)
[2020-11-18] MEDS: LACTATED RINGER'S 1,000 ML IV SCH ×2 (01:31→06:17)
[2020-11-18 05:52] LABS: Basophils # (auto) 0.02 K/uL (0-0.2); Basophils % (auto) 0.3 %; Eosinophils # (auto) 0.25 K/uL (0-0.5); Hematocrit (blood only) 37.4 % (42-52); Hemoglobin 12.7 g/dL (14.0-18.0); Immature Granulocytes # (auto) 0.01 K/uL (0.00-0.02); Immature Granulocytes % (auto) 0.2 %; Lymphocytes # (auto) 2.25 K/uL (1.2-3.4); Lymphocytes % (auto) 35.8 %; Mean Corpuscular Hemoglobin 30.2 pg (25-34); Mean Corpuscular Volume 88.8 fL (80-100); Mean Platelet Volume 8.8 fL (7.4-10.4); Monocytes % (auto) 11.1 %; Neutrophils # (auto) 3.06 K/uL (1.4-6.5); Neutrophils % (auto) 48.6 %; Platelet Count 234 K/uL (130-400); RDW Coefficient of Variation 13.5 % (11.5-14.5); RDW Standard Deviation 44.1 fL (36.4-46.3); Red Blood Count 4.21 M/uL (4.7-6.1); White Blood Count 6.29 K/uL (4.8-10.8)
[2020-11-18 06:27] LABS: BUN Creatinine Ratio 19.7 (10-20); Calcium 8.9 mg/dl (8.5-10.1); Est GFR (African American) 112.4; Magnesium 2.2 mg/dl (1.8-2.4); Potassium 4.5 mmol/L (3.5-5.1)
--- NOTE | 2020-11-18 08:43 | XRay Report ---
KUB CLINICAL HISTORY: ureteral calculus COMPARISON STUDY: CT of the abdomen and pelvis November 16, 2020. KUB November 17, 2020. FINDINGS: A 4 mm proximal left ureteral calculus located at the upper L4 level is unchanged in positi on. No additional ureteral calculi are identified. Pelvic calcifications reflect phleboliths. Right r enal shadow is partially obscured by stool. There are cholecystectomy clips. The pattern is normal. IMPRESSION: No change in position of a 4 mm proximal left ureteral calculus. ACT 112: Negative or not required by law. Electronically signed by: Naga Hughes M.D. 11/18/2020 8:42 AM
[2020-11-18] MEDS ORDERED: METOPROLOL SUCC 25MG EXT REL TAB PO SCH (09:00)
[2020-11-18] MEDS: TAMSULOSIN HCL 0.4 MG CAP PO SCH (09:26)
--- NOTE | 2020-11-18 10:36 | Urology Progress Note ---
Date of Service November 18, 2020 Assessment & Plan (1) Hydronephrosis due to obstruction of ureter: (2) Left flank pain: 60 year old male admitted for worsening left flank pain secondary to 4 mm obstructing left mid ureteral stone. - Plan of care reviewed with Dr. Orr. - Patient afebrile, white count and creatinine are stable. - KUB this morning showed no change in position of his 4 mm proximal left ureteral calculus. - Discussed options for acute stone management with ureteroscopy, stone extraction, and stent. - Discussed outpatient options for conservative measures with max expulsion medical therapy. - Discussed outpatient ESWL. - Risks and benefits of all procedures discussed. - Patient prefers to proceed with outpatient ESWL this Sunday if he does not pass the stone before then. - No acute intervention planned today. - Ok to have a diet back. - Will schedule him for Left ESWL this Sunday. - Reviewed in detail signs/symptoms that would warrant return to the hospital, patient verbalized an understanding. - Reviewed risks/benefits of ESWL as per consent, all questions were answered. - Recommend home with Tamsulosin and pain control. - Continue to strain all urine. - Ok for discharge from perspective. - Will arrange outpatient follow-up with urology following ESWL procedure. - Patient agreeable to above plan. Admission and Anticipated Discharge Date Admission Date: November 16, 2020 Subjective Pt examined at bedside this AM. Awake, resting comfortably in bed on arrival this am. No stone passage noted. Currently NPO. Still with left flank pain which radiates to left groin, rates pain 5/10. He has not taken any pain medications recently. Denies fevers or chills. No nausea or vomiting. Denies hematuria/dysuria. Feels he is emptying his bladder without difficulty. Chart review: Afebrile Wbc 6.29 Hgb 12.7 Cr 0.83 Urine culture pending Offers no additional complaints today Review of Systems Review of Systems: All systems reviewed & are unremarkable except as noted in HPI & below Physical Exam Constitutional: well developed and well nourished; no acute distress Neck: normal visual inspection Respiratory: no respiratory distress and no labored breathing Cardiovascular: Extremities: no calf tenderness Gastrointestinal (Abdomen): Percussion/Palpation: + abdomen tender (mild left flank/suprapubic tenderness with palpation) and abdomen soft; no guarding and abdomen not rigid Musculoskeletal: Head/Neck/Chest: normocephalic Skin: no rashes, warm and dry Neurologic: moves all extremities and awake Psychiatric: A+Ox3, euthymic affect Results & Data ([facility]) Vital Signs (Past 12 Hours) Vital Signs Temp Pulse Resp BP Pulse Ox 11/18/20 07:42 37.1 C 92 H 16 170/108 H 96 11/17/20 22:54 37.3 C 102 H 18 138/90 95 11/17/20 20:59 87 154/98 H PG Care Time/CCT Total # of Minutes Spent Total Time Spent with Patient: Total time spent is greater than 50% in coordination of care (as documented) at patient's floor/unit and/or counseling patient: Coding Level of Care Code 11433 Subseq Hosp Care Lvl 2 Diagnoses Hydronephrosis due to obstruction of ureter N13.1 Left flank pain R10.9
--- NOTE | 2020-11-18 10:37 | XRay Report ---
XR chest 2V PA/lateral CLINICAL HISTORY: Preoperative chest COMPARISON STUDY: No previous studies for comparison. FINDINGS: The cardiac and mediastinal contours are normal. There is no evidence of focal pulmonary co nsolidation. There is no evidence of failure. There is equivocal blunting of the right posterior cost ophrenic angle. IMPRESSION: 1. Equivocal minimal blunting of the right posterior costophrenic angle. Otherwise unremarkable chest . ACT 112: Negative or not required by law. Electronically signed by: Kaushik Dias M.D. 11/18/2020 10:36 AM
--- NOTE | 2020-11-18 16:06 | Discharge Summary ---
Date of Service November 18, 2020 Admission HPI Per Admitting Provider 60 YOM with past medical history of HTN, obesity, nephrolithiasis, renal cysts, and cholecystectomy. Patient comes in to the emergency room today for uncontrolled pain secondary to a known 4mm obstructing left renal stone. The patient started having the pain last week. He went to [place] on Sunday was discharged home after pain medication and some IVF per his recollection, he called Urology office on Sunday and scheduled an appointment with Dr. Orr for the 18 of November. The patient reports that "he has been following this stone with me". The patient came to the emergency room last night because the pain moved and became more unbearable. He had CT scan of the abdomen done which showed known bilateral renal cysts, 4mm obstructing stone on the left and a 4mm obstructing stone on the left. He was treated with toradol IM and IV morphine, and was discharged with PO Toradol 10mg and Oxycodone 5mg. Patient got home reportedly at 230 in the morning and went to bed without taking pain medication. He woke up this morning with the pain worsening on his left side and took 1 Toradol, with no relief and then at 11 he took 1 oxycodone. He called the urology office and did not receive a return call so he came back to the emergency room. He was given IV morphine and Zofran, and pain still was at 5- 6/10. Hospitalist team was notified for admission. He will be admitted for pain control, kept NPO after midnight and Urology consult will be placed. Principal Diagnosis left sided renal colic with mild hydro Discharge Exam The patient appeared in mild pain the patient requested to be discharged Vital signs as documented. Lungs are clear to auscultation and appear unlabored Cardiac exam, Rhythm is regular.. No murmurs, rubs or gallops. Abdominal exam reveals normal bowel sounds, soft left abdomen and CVA angle tenderness Extremities are nonedematous and both pedal pulses are normal. Neurologic exam is alert and oriented, no focal loss of strength or sensation Skin is without bruises or rashes Psychologically is without concerns for anxiety or depression. Discharge Data Allergies Allergy/AdvReac Type Severity Reaction Status Date / Time lisinopril AdvReac Mild Cough Verified 11/18/20 14:08 Consultations 11/16/20 16:10 ED Decision to Admit Stat 11/16/20 19:25 Consult Urology Routine Procedures Performed Operation Date: 11/18/20 13:45 <No data on this case meets the specified criteria> Hospital Course (1) Ureterolithiasis: - There is a 4 mm obstructing calculus in the mid left ureter - least mild left-sided hydronephrosis. Numerous parapelvic cysts are seen bilaterally. -There is slightly heterogeneous enhancement of the left kidney. Mild left-sided perinephric stranding is noted. - pt was kept NPO after midnight for possible cystoscopy and stenting on 11/18, hoxever he did not want to have a stent and opted to go home with the scheduling for outpt lithotripsy, he was offered additional pain medicine and antiemetics and declined. Urology ANDREI was in the room and coordinating for lithotripsy for 11/19 Patient is non-septic and urine analysis is negative for infection. (2) HTN (hypertension): States he is originally well controlled, likely elevated now in the setting of acute pain and copious IV hydration - Continue Metoprolol recommended to excalate to bid and offered RX pt wants to speak to family doctor about it -hydralazine prn for excessive bp elevation (3) GERD (gastroesophageal reflux disease): No acute needs - Continue famotidine 20 mg PO Daily (4) Obesity: BMI 36- educate on weight loss and activity - Hgb A1C 5.7 - (5) Renal cyst: Chronic - no acute needs, normal renal function Total Time Total Time Spent Total Time Spent (In Minutes): It required greater than 30 minutes to prepare this patient for discharge Discharge Plan Discharge Items Patient Disposition: Home - Self-Care Reason For Visit: nephrolethiasis Discharge Diagnosis: kidneystone with pain, plans for office lithotripsy 11/19/20 Activity: Per Instructions section Activity Comment: avoid excessive activity until after lithotripsy Non-emergency contact: Urologist Call non-emergency contact if: you have any medication questions, your symptoms worsen and you have a fever Follow-up/Referrals: Leonid Orr DO [Physician] - ([facility], AT OFFICE WILL CALL PATIENT WITH TIME FOR LITHO TOMORROW 11/18/20.) Atul Suero D.O. [Primary Care Provider] - Diet: Regular Diet Comment: no food or drink after midnight, you may take medicine with a small sip Addtl Attending Provider Instructions: please be sure to have follow up for sound wave treatment (lithotripsy) at urology office for Sunday11/19/20 please take blood pressure pill twice a day (metoprolol) until after the procedure, please see your primary care doctor next week to recheck you blood pressure Pending Studies at Discharge: No Stand-Alone Forms: My [facility] [employer], Smoking Cessation Medications and DC Order Prescriptions: Continued ketorolac 10 mg tablet 10 mg PO UD PRN (Reason: Pain) RF: 0 tamsulosin 0.4 mg capsule 0.4 mg PO DAILY RF: 0 ondansetron 4 mg tablet,disintegrating 4 mg PO UD PRN (Reason: Nausea) RF: 0 metoprolol succinate 25 mg tablet extended release 24 hr 25 mg PO BID RF: 0 oxycodone 5 mg tablet 5 mg PO Q4H Qty: 15 RF: 0 famotidine [Pepcid] 20 mg Tablet 20 mg PO DAILY PRN (Reason: Heartburn) RF: 0 Discharge Orders: Discharge Order (Routine); Ordered 11/18/20 Ordered By: Timothy Dalal/Other Patient Handouts: Shock Wave Lithotripsy Admission Data Admit Date/Time: 11/16/20 17:14 Attending Provider: Timothy Simmons Admit Provider: Juaquin Manning Primary Care Provider: Atul Suero Other Providers: Juaquin Manning ; Matt Chilel Other Interventions: Discharge Summary Assessment (RN) Last Done: 11/18/20 13:03 Coding Level of Care Code D/C Day Management >30 mins Diagnoses Ureterolithiasis N20.1 HTN (hypertension) I10 Hypertension type: essential hypertension GERD (gastroesophageal reflux disease) K21.9 Esophagitis presence: without esophagitis Obesity E66.09; Z68.36 Obesity type: due to excess calories Obesity classification: adult class 2 (BMI 35 - 39.9) Serious obesity comorbidity presence: without serious comorbidity Body mass index: BMI 36.0-36.9 Renal cyst N28.1
== END 2020-11-18 13:31 | disposition home or self-care (01) | DRG 694 ==
LOC: ED 14:31 → 3W 17:14 → SUATTDRO 17:14 → 3W 19:04